=== PATIENT | female | born 1965 | race Caucasian/White ===

== ENCOUNTER 2016-09-15 10:43 | Emergency (ER) | payer OTHER ==
[2016-11-02] MEDS ORDERED: LODINE CAP 300300 MG PO (08:25)
[2016-11-02] MEDS ORDERED: HYDROCODON-ACE1 EAC4 PO (08:26)
[2016-11-02] MEDS ORDERED: PERCOCET 7.5-31 EACH PO (15:00)
== END 2016-09-15 12:23 | disposition home or self-care (01) ==
LOC: ER1 10:43
DX: S83.91XA Sprain of unspecified site of right knee, initial encounter (principal); X58.XXXA Exposure to other specified factors, initial encounter
CPT/HCPCS: 73564; 99283

== ENCOUNTER → 2016-09-23 | Outpatient (CLI) | payer OTHER ==
[~2016-09-23] MED LIST: HYDROCODON-ACE1 EAC4 PO; LODINE CAP 300300 MG PO; PERCOCET 7.5-31 EACH PO
== END ==
LOC: KOH-I 08:45
DX: S83.241A Other tear of medial meniscus, current injury, right knee, initial encounter (principal); M25.861 Other specified joint disorders, right knee
CPT/HCPCS: 73721

== ENCOUNTER → 2016-10-26 | Outpatient (CLI) | payer OTHER ==
[2016-10-26 10:34] LABS: HEMOGLOBIN 12.5 gm/dl (12.3-15.3); RED BLOOD COUNT 4.29 M/UL (4.00-5.10); WHITE BLOOD COUNT 4.9 K/UL (4.5-11.0)
[2016-10-26 10:54] LABS: BUN/CREATININE RATIO 30 (0-10)
== END ==
LOC: OPSV2 09:30
PROVIDERS: Orthopaedic Surgery
DX: Z01.812 Encounter for preprocedural laboratory examination (principal); S83.241A Other tear of medial meniscus, current injury, right knee, initial encounter
CPT/HCPCS: 36415; 80048; 85027

== ENCOUNTER → 2016-11-02 | Day surgery (SDC) | payer OTHER ==
[~2016-11-02] VITALS: Ht 167.6 cm; Wt 112.5 kg
== END | disposition home or self-care (01) ==
LOC: OR 07:34
PROVIDERS: Orthopaedic Surgery
PROC: 0SBC4ZZ Excision of Right Knee Joint, Percutaneous Endoscopic Approach (ICD-10-PCS; principal; 2016-11-02 10:15)
DX: M23.321 Other meniscus derangements, posterior horn of medial meniscus, right knee (principal); M94.261 Chondromalacia, right knee; M19.90 Unspecified osteoarthritis, unspecified site; G89.29 Other chronic pain; Z79.899 Other long term (current) drug therapy
CPT/HCPCS: J0171; J0690; J1200; J2250; J2405; J2710; J2795; J3010; J7120

== ENCOUNTER → 2021-10-15 | Outpatient (CLI) | payer BC | LOC: US 10-08 10:00 | DX: D17.9 Benign lipomatous neoplasm, unspecified (principal); K76.0 Fatty (change of) liver, not elsewhere classified | CPT/HCPCS: 76705 ==

== ENCOUNTER 2022-02-05 12:53 | Emergency (ER) | payer BC ==
[2022-02-05] MEDS ORDERED: CLINDAMYCIN HC150 MG PO (15:10)
[2022-02-05] MEDS ORDERED: ZOFRAN ODT 4 MG4 MG PO (15:11)
== END 2022-02-05 15:25 | disposition home or self-care (01) ==
LOC: ER1 12:53
DX: T63.301A Toxic effect of unspecified spider venom, accidental (unintentional), initial encounter (principal); L03.115 Cellulitis of right lower limb; Z90.89 Acquired absence of other organs; Z90.49 Acquired absence of other specified parts of digestive tract; R40.2410 Glasgow coma scale score 13-15, unspecified time
CPT/HCPCS: 99282